=== PATIENT | male | born 1965 | race Caucasian/White ===

== ENCOUNTER 2020-12-12 18:05 | Inpatient (IN) | payer MEDICARE, OTHER ==
[~2020-12-12] VITALS: Ht 154.9 cm; Wt 85.7 kg
--- NOTE | 2020-12-12 18:45 | NUR ---
Called [facility] to give report. Was told they are not available to take report.
--- NOTE | 2020-12-12 18:54 | NUR ---
Patient bib by RA from [facility] in [place]. Apparently was found in a krause with an elevated ETOH level. He also did admit to suicidal ideations and was subsequently put on a 5150 hold by [facility]. He is calm and cooperative now. A&Ox4. Medically cleared by Dr. Mendiola.
--- NOTE | 2020-12-12 20:05 | NUR ---
Gave report to [facility] nurse. Pt going to room 145C.
[2020-12-12] MEDS ORDERED: QUET25TA3 PO (20:08)
[2020-12-12] MEDS ORDERED: TRAZODONE PO (20:08)
[2020-12-12] MEDS ORDERED: LEVE500T9 PO (20:08)
--- NOTE | 2020-12-12 20:44 | NUR ---
Pt. admitted to [facility] , under care of Dr. Arechiga, Dr. Bardales Belongs List completed
[2020-12-12 20:45] VITALS: BP 140/83
[2020-12-12] MEDS ORDERED: TEMAZEPAM 7.5 MG CAPSULE PO PRN (20:45)
[2020-12-12] MEDS ORDERED: MAGNESIUM HYDROXIDE 30 ML LIQUID UDC PO PRN (20:45)
[2020-12-12] MEDS ORDERED: MAG HYDROX/AL HYDROX/SIMETH 30 ML LIQUID UDC PO PRN (20:45)
[2020-12-12] MEDS ORDERED: BLOOD SUGAR DIAGNOSTIC 1 EACH STRIP VI ONE (20:45)
--- NOTE | 2020-12-12 21:00 | NUR ---
Admission Note: 55 y.o. male admitted to [facility] via wheelchair, accompanied by ER staff. Upon admission to the unit, VS stable, no c/o pain, and A+Ox3. Ambulates with slow and weak gait, PT ordered. Pt is on a 5150 for DTS, which expires 12/13/20 at 1236 PM. According to the Hold, someone called 911 reporting someone that fell in their lawn. PD responded and pt was found lying in the bushes with an almost empty bottle of vodka next to him. Patient stated on scene that he "can't take the pain anymore" and was going to kill himself. Pt endorses what is written on the Hold and stated he is here because "I'm overwhelmed and was feeling suicidal". Pt reports "overwhelming depression" and suicidal thoughts without a specific plan, however he admits he yelled at prepared foods team leader to "shoot me". Pt is able to verbally contract for safety inside the hospital, unreliable for safety outside, as Pt has no viable plan for safety or self care. Pt reported possible fiduciary abuse, stating that "a friend receives my disability benefits, but I haven't been able to find him recently". States "a lot of people take advantage of me because I'm slow". Marketing/Sales Person referral initiated. Pt reports feeling hopeless, helpless, and lost. Affect is flat, and he presents with sad and anxious mood. Pt is hyperverbal with pressured speech, and circumstantial in thought process. Triggers to his suicidal feelings are homelessness, no social support/contacts, declining health chronic pain, alcoholism, and the recent divorce from his of 40 years. Pt reports drinking up to one bottle of red wine daily intermittently ("I binge") and smokes 1 pack of cigarettes weekly . Skin assessment completed with licensed staff-redness noted to mid and lower back, Pt refused to let staff assess his groin area, otherwise skin is C/D/I. Medical h/o Prostate CA with mets to the bone, testicle CA and removal, mediastinal mass, lung nodules, chronic pain, meningitis, anemia, HTN, seizure disorder, chronic ETOH abuse, bipolar disorder, anxiety, major depression, and insomnia, NKA. Dr Arechiga and Dr Juarez notified of admission, medications reconciled, admitting orders received. Pt disheveled and malodorous, shower given. Pt belongings inventoried, contraband placed in unit locker. Pt is a poor historian and is unable to recall if he received his PNA or Covid vaccinations. Pt requested staff to follow up with his outside social and political studies professor. Pt was cooperative with admission process, and signed all paperwork. Pt gave permission to call hhis parents in [place] in the morning.Patient Rights handbook and Advisement given to Pt, and patient rights explained, Pt verbalized understanding. Pt educated on unit rules, expectations, and hand/respiratory hygiene, Pt verbalized understanding. Oriented to the unit, the phone, the restrooms, and his room. C/o chronic insomnia and restlessness, Restoril 7.5mg administered with good effect. Q 15 minute rounding initiated for safety.
[2020-12-12] MEDS ORDERED: levETIRAcetam 500 MG TABLET PO ONE (21:15)
[2020-12-13] MEDS ORDERED: LEVE100023 PO (02:36)
[2020-12-13] MEDS ORDERED: FLUO10CA29 PO (02:36)
[2020-12-13] MEDS ORDERED: MELA3TAB41 PO (02:36)
[2020-12-13] MEDS ORDERED: HYDR-3980 PO (02:36)
[2020-12-13] MEDS ORDERED: ONDA4TAB5 PO (02:36)
[2020-12-13] MEDS ORDERED: DIVA500T2 PO (02:36)
[2020-12-13] MEDS ORDERED: QUET25TA PO (02:36)
[2020-12-13] MEDS ORDERED: HYDR-894 PO (02:36)
[2020-12-13] MEDS ORDERED: RIFA550T PO (02:36)
[2020-12-13] MEDS ORDERED: TAMS-3 PO (02:36)
[2020-12-13] MEDS ORDERED: ONDANSETRON HCL 4 MG TABLET PO PRN (03:00)
[2020-12-13] MEDS ORDERED: hydrALAZINE HCL 25 MG TABLET PO PRN (03:00)
[2020-12-13] MEDS ORDERED: MELATONIN 3 MG TABLET PO PRN (03:00)
[2020-12-13 07:30] VITALS: BP 144/72
[2020-12-13 08:15] LABS: HEMATOCRIT 36.8 % (36.7-47.1); MEAN CORPUSCULAR HEMOGLOBIN 30.8 uug (23.8-33.4); MEAN CORPUSCULAR VOLUME 91.6 fL (73.0-96.2); PLATELET COUNT (AUTO) 241 K/uL (152-348)
[2020-12-13 08:19] LABS: ALANINE AMINOTRANSFERASE 11 U/L (16-63); ALKALINE PHOSPHATASE 278 U/L (50-136); ASPARTATE AMINOTRANSFERASE 9 U/L (15-37); BILIRUBIN,TOTAL 0.3 mg/dL (0.2-1.0); CARBON DIOXIDE 31 mmol/L (21-32); CHLORIDE 105 mmol/L (98-107); CREATININE 0.9 mg/dL (0.6-1.3); GLUCOSE 87 mg/dL (74-106); GLUCOSE FASTING 87 mg/dL (70-115); MAGNESIUM 1.8 mg/dL (1.8-2.4); PHOSPHOROUS 3.4 mg/dL (2.5-4.9); POTASSIUM 4.3 mmol/L (3.5-5.1); TOTAL PROTEIN, SERUM 7.6 g/dL (6.4-8.2); UREA NITROGEN, BLOOD 23 mg/dL (7-18)
[2020-12-13 08:27] LABS: THYROID STIMULATING HORMONE < 0.007 mIU/mL (0.358-3.740)
[2020-12-13] MEDS: NICOTINE 7 MG/24HR PATCH TD SCH (08:35)
[2020-12-13] MEDS: levETIRAcetam 500 MG TABLET PO SCH ×2 (08:35→17:08)
[2020-12-13 09:00] LABS: CHOLESTEROL 197 mg/dL (<200); HDL CHOLESTEROL 61 mg/dL (40-60); TRIGLYCERIDES 113 MG/DL (30-150)
[2020-12-13] MEDS ORDERED: RIFAXIMIN 550 MG TABLET PO SCH ×2 (09:00)
[2020-12-13] MEDS ORDERED: levETIRAcetam 500 MG TABLET PO SCH (09:00)
[2020-12-13] MEDS ORDERED: DIVALPROEX 500 MG TABLET.DR PO SCH ×2 (09:00)
--- NOTE | 2020-12-13 10:34 | NUR ---
ADI Initial Discharge Plan: Patient was recently staying in a homeless senior living. Patient will need SNF placement upon discharge. Patient has no family support. Patient has a step-mother Rhiannon Melara ([phone]) who lives with his father in [place]. ADI will continue to work with patient, family, and MD to ensure a safe and proper discharge plan.
--- NOTE | 2020-12-13 10:38 | NUR ---
Firearms Report: Spanish Speaking Babysitter completed and submitted a [employer] firearms report for 5150 danger to self certifications. A copy of report has been placed in patient chart.
--- NOTE | 2020-12-13 10:52 | NUR ---
Brief Substance Abuse Intervention: Patient was provided with a brief substance abuse intervention for alcohol and cigarettes abuse and referred to the following substance abuse programs: [facility]stance Abuse Self-helpline ([phone]); [facility] [address] [place] [address] ([phone]); [facility] [id number] [place] [address] ([phone]); [facility] ([phone]); [facility] ([phone]); [facility] ([phone]); [facility] ([phone]).
[2020-12-13 16:15] VITALS: BP 148/79
[2020-12-13] MEDS: TAMSULOSIN HCL 0.4 MG CAP.SR.24H PO SCH (20:12)
[2020-12-13] MEDS: QUETIAPINE FUMARATE 25 MG TABLET PO SCH (20:13)
[2020-12-13 20:28] VITALS: BP 136/72
--- NOTE | 2020-12-13 22:39 | NUR ---
Patient appropriate upon approach, med compliant, patient feels anxious to the environment, semi fair insight and semi fair judgement. Patient will remain in a psych facility for further evaluation and treatment.
[2020-12-14 07:59] VITALS: BP 101/64
--- NOTE | 2020-12-14 10:42 | NUR ---
ADI SNF Referral: ADI faxed patient's referral packet to [facility] attention to Michael (F: [phone]) for review and possible placement.
[2020-12-14] MEDS: NICOTINE 7 MG/24HR PATCH TD SCH (10:45)
[2020-12-14] MEDS: levETIRAcetam 500 MG TABLET PO SCH ×2 (10:46→18:40)
[2020-12-14] MEDS: SERTRALINE HCL 50 MG TABLET PO SCH (10:46)
[2020-12-14 15:54] VITALS: BP 139/74
[2020-12-14] MEDS: TAMSULOSIN HCL 0.4 MG CAP.SR.24H PO SCH (20:46)
[2020-12-14] MEDS: QUETIAPINE FUMARATE 25 MG TABLET PO SCH (20:46)
[2020-12-14 21:18] VITALS: BP 136/66
--- NOTE | 2020-12-14 21:18 | NUR ---
Received patient in rec room watching television. Being that i admitted him in the ER he remembered me and our dialogue began. He states that he feels much better and safe in this facility. He states that he was in some sort of usp prior to [facility] and that he didn't even feel safe going to sleep there. He mentions to me that he has three daughters and a and that he misses them and regrets all the time he "cannot get back" over the past few years. He does have a somewhat somnolent tone when speaking about his family, understandably so. He also mentions that he lost his ID card (for the umpteenth time) and that things have been difficult without it. Would like the professor of social work to help him out with obtaining a new one. He would also like to know "the next step" for him. He states that he sometimes has night terrors and that his psychiatrist has stated that could be repressed memories coming back to light. He states that he had some traumatic event that happened in his childhood and is unsure why those memories are coming back to light now. This account underwriter made sure to take time and listen to his concerns and assure him he is in a safe environment + people are here in he needs anything. Denies suicidal/homicidal ideations. Verbalizes contract for safety.
--- NOTE | 2020-12-15 06:10 | NUR ---
No events overnight. Calm and cooperative. See initial notes for further breakdown of behavior. Patient slept 7.30 hours throughout the night with no disruptions.
[2020-12-15 07:30] VITALS: BP 128/65
[2020-12-15] MEDS: NICOTINE 7 MG/24HR PATCH TD SCH (09:22)
[2020-12-15] MEDS: levETIRAcetam 500 MG TABLET PO SCH ×2 (09:22→16:41)
[2020-12-15] MEDS: SERTRALINE HCL 50 MG TABLET PO SCH (09:22)
--- NOTE | 2020-12-15 10:15 | NUR ---
ADI PC Hearing: Patient had 5250 probable cause hearing today and it was upheld for grave disability and danger to self.
[2020-12-15] MEDS: LORAZEPAM 1 MG TABLET PO PRN (13:41)
[2020-12-15 16:00] VITALS: BP 142/77
--- NOTE | 2020-12-15 19:32 | NUR ---
Patient in room, AOx3-4. On room air. No signs of acute distress. Patient compliant with medications and care. Patient complained of anxiety, Ativan PRN given. Patient tolerated well. Will endorse to incoming shift for continuity of care.
[2020-12-15 20:00] VITALS: BP 155/78
[2020-12-15] MEDS: QUETIAPINE FUMARATE 25 MG TABLET PO SCH (20:24)
[2020-12-15] MEDS: TAMSULOSIN HCL 0.4 MG CAP.SR.24H PO SCH (20:24)
[2020-12-16 07:30] VITALS: BP 137/74
[2020-12-16] MEDS: SERTRALINE HCL 50 MG TABLET PO SCH (08:04)
[2020-12-16] MEDS: levETIRAcetam 500 MG TABLET PO SCH ×2 (08:05→16:08)
[2020-12-16] MEDS: NICOTINE 7 MG/24HR PATCH TD SCH (08:05)
[2020-12-16 16:14] VITALS: BP 109/73
[2020-12-16 20:19] VITALS: BP 142/79
[2020-12-16] MEDS: TAMSULOSIN HCL 0.4 MG CAP.SR.24H PO SCH (20:22)
[2020-12-16] MEDS: LORAZEPAM 1 MG TABLET PO PRN (20:22)
[2020-12-16] MEDS: QUETIAPINE FUMARATE 25 MG TABLET PO SCH (20:23)
[2020-12-17] MEDS: NICOTINE 7 MG/24HR PATCH TD SCH (08:01)
[2020-12-17] MEDS: SERTRALINE HCL 50 MG TABLET PO SCH (08:01)
[2020-12-17] MEDS: levETIRAcetam 500 MG TABLET PO SCH ×2 (08:01→16:18)
[2020-12-17 08:08] VITALS: BP 132/75
[2020-12-17] MEDS: ACETAMINOPHEN 325 MG TABLET PO PRN (13:35)
[2020-12-17 16:47] VITALS: BP 124/70
[2020-12-17 20:08] VITALS: BP 131/97
[2020-12-17] MEDS: TAMSULOSIN HCL 0.4 MG CAP.SR.24H PO SCH (20:56)
[2020-12-17] MEDS: LORAZEPAM 1 MG TABLET PO PRN (20:56)
[2020-12-17] MEDS: QUETIAPINE FUMARATE 25 MG TABLET PO SCH (20:56)
[2020-12-18] MEDS: SERTRALINE HCL 50 MG TABLET PO SCH (08:01)
[2020-12-18] MEDS: NICOTINE 7 MG/24HR PATCH TD SCH (08:01)
[2020-12-18] MEDS: levETIRAcetam 500 MG TABLET PO SCH ×2 (08:01→16:26)
[2020-12-18 08:15] VITALS: BP 147/51
[2020-12-18 16:21] VITALS: BP 138/74
[2020-12-18] MEDS: LORAZEPAM 1 MG TABLET PO PRN (16:28)
[2020-12-18] MEDS: TAMSULOSIN HCL 0.4 MG CAP.SR.24H PO SCH (20:01)
[2020-12-18] MEDS: QUETIAPINE FUMARATE 25 MG TABLET PO SCH (20:01)
[2020-12-19] MEDS: LORAZEPAM 1 MG TABLET PO PRN ×3 (04:50→20:31)
[2020-12-19 08:14] VITALS: BP 115/62
[2020-12-19] MEDS: SERTRALINE HCL 50 MG TABLET PO SCH (08:16)
[2020-12-19] MEDS: NICOTINE 7 MG/24HR PATCH TD SCH (08:16)
[2020-12-19] MEDS: levETIRAcetam 500 MG TABLET PO SCH ×2 (08:16→15:41)
[2020-12-19 15:29] VITALS: BP 132/76
--- NOTE | 2020-12-19 15:41 | NUR ---
patient become agitated yelling and screaming for no reason ,Ativan 1 mg given as ordered.
[2020-12-19] MEDS: TAMSULOSIN HCL 0.4 MG CAP.SR.24H PO SCH (20:30)
[2020-12-19] MEDS: QUETIAPINE FUMARATE 25 MG TABLET PO SCH (20:31)
[2020-12-19 21:23] VITALS: BP 126/51
[2020-12-20 07:30] VITALS: BP 127/70
[2020-12-20] MEDS: levETIRAcetam 500 MG TABLET PO SCH ×2 (08:28→16:37)
[2020-12-20] MEDS: NICOTINE 7 MG/24HR PATCH TD SCH (08:28)
[2020-12-20] MEDS: SERTRALINE HCL 50 MG TABLET PO SCH (08:28)
[2020-12-20 15:20] VITALS: BP 121/53
[2020-12-20] MEDS: LORAZEPAM 1 MG TABLET PO PRN (17:26)
--- NOTE | 2020-12-20 20:00 | NUR ---
RECEIVED PATIENT IN THE DAY ROOM, HE IS NOTED A/O X 3 ABLE TO VERBALIZED FEELINGS. HE IS NOTED CALM AND PLEASANT UPON APPROACHED. HE IS ABLE TO VERBALIZED HIS FEELINGS. DENIED SI/HI/AH/VH HE IS ABLE TO VERBALLY CFS. HE IS REASSURED FOR HIS SAFETY. SAFETY AND FALL PRECAUTION IN PLACE. PO FLUIDS AND SNACKS WERE GIVEN. V/S STABLE AT THIS TIME, WILL CONTINUE TO MONITOR.
[2020-12-20 20:34] VITALS: BP 141/51
[2020-12-20] MEDS: TAMSULOSIN HCL 0.4 MG CAP.SR.24H PO SCH (20:56)
[2020-12-20] MEDS: QUETIAPINE FUMARATE 25 MG TABLET PO SCH (20:56)
[2020-12-21 08:01] VITALS: BP_SYST 124
[2020-12-21] MEDS: SERTRALINE HCL 50 MG TABLET PO SCH (08:29)
[2020-12-21] MEDS: NICOTINE 7 MG/24HR PATCH TD SCH (08:29)
[2020-12-21] MEDS: levETIRAcetam 500 MG TABLET PO SCH ×2 (08:29→16:12)
[2020-12-21 16:30] VITALS: BP 125/66
--- NOTE | 2020-12-21 20:30 | NUR ---
RECEIVED PATIENT IN THE DAY ROOM. HE IS NOTED A/O X 3 ABLE TO VERBALIZED FEELINGS. HE IS NOTED CALM AND PLEASANT UPON APPROACHED. HE DENIED SI. HE IS ABLE TO VERBALLY CFS. PATIENT NOTED GOAL ORIENTED. HE IS AWARE AND AGREEABLE WITH DISCHARGED PLANING. V/S STABLE. HE WAS GIVEN PO FLUIDS AND SNACKS. HE IS REASSURED FOR HIS SAFETY. SAFETY AND FALL PRECAUTION IN PLACE. WILL CONTINUE TO MONITOR.
[2020-12-21] MEDS: TAMSULOSIN HCL 0.4 MG CAP.SR.24H PO SCH (20:42)
[2020-12-21] MEDS: QUETIAPINE FUMARATE 25 MG TABLET PO SCH (20:43)
[2020-12-21 21:19] VITALS: BP 135/81
[2020-12-22] MEDS: LORAZEPAM 1 MG TABLET PO PRN ×2 (05:19→13:16)
[2020-12-22] MEDS: ACETAMINOPHEN 325 MG TABLET PO PRN (05:29)
[2020-12-22 07:30] VITALS: BP 143/60
--- NOTE | 2020-12-22 08:05 | NUR ---
Discharge Note: Patient will be discharged to [facility] [address] [address] ([phone]). Patient will be provided transportation at 1:00pm via ambulance. Spoke with Edwin the Admin Coordinator at the facility who states they are ready to accept the patient today. Patient is aware and agreeable with discharge plans. Patient is alert and oriented x4, is unable to plan for self-care however is willing to accept care at the facility. Patient denies any suicidal or homicidal ideation. Patient will follow-up at the facility with Psychiatrist Dr. Arechiga and [employer] Dr. Fernandes. Patient presents with euthymic mood and congruent affect.
[2020-12-22] MEDS: NICOTINE 7 MG/24HR PATCH TD SCH (09:15)
[2020-12-22] MEDS: levETIRAcetam 500 MG TABLET PO SCH (09:15)
[2020-12-22] MEDS: SERTRALINE HCL 50 MG TABLET PO SCH (09:15)
--- NOTE | 2020-12-22 13:34 | NUR ---
Pt picked up by ambulance at 1335, pt in a stable, safe condition. Belongings and discharge packet given to pt, teachings provided. Discharge papers signed by pt, home meds sent with pt. Report given to Patience Lombardi RN of [facility]. Dr. Arechiga gave no new orders, said to continue current meds.
== END 2020-12-22 13:48 | DRG 885 ==
LOC: ER 18:13 → GPS 20:25
PROVIDERS: ADMIT Psychiatry & Neurology Psychiatry; ATTEND Student in an Organized Health Care Education/Training Program
DX: F31.30 Bipolar disorder, current episode depressed, mild or moderate severity, unspecified (principal); F23 Brief psychotic disorder; Z59.0 Homelessness; F17.210 Nicotine dependence, cigarettes, uncomplicated; D63.8 Anemia in other chronic diseases classified elsewhere; E78.5 Hyperlipidemia, unspecified; Z20.822 Contact with and (suspected) exposure to COVID-19; F10.20 Alcohol dependence, uncomplicated; G40.909 Epilepsy, unspecified, not intractable, without status epilepticus; Z85.46 Personal history of malignant neoplasm of prostate
CPT/HCPCS: 36415; 71045; 83735; 84100; 84443; 85025; 93005; 97161; A4663; A9150